=== PATIENT | female | born 1990 | race Caucasian/White ===

== ENCOUNTER 2017-03-16 12:00 | Emergency (ER) | payer OTHER ==
[2017-03-16 12:14] VITALS: BP 131/93; PULSE 79; TEMP 98.1; BMI 29.7
[2017-03-16] MEDS ORDERED: ONDANSETRON 4 MG/2 ML VIAL IVPB ONE (12:18)
[2017-03-16] MEDS ORDERED: SODIUM CHLORIDE 1,000 ML IV STA (12:18)
--- NOTE | 2017-03-16 12:18 | PDOC ---
History of Present Illness - General Chief Complaint: Vomiting/Diarrhea Stated Complaint: ABD PAIN, VOMITING, DIARRHEA Time Seen by Provider: 03/16/17 12:07 History Source: Patient Exam Limitations: No Limitations - History of Present Illness Travel History: No Initial Comments: 03/16/17 12:20 This is a 26 yo F who presents to the ER with a complaint of nausea, vomiting, diarrhea and abdominal pain Pt states that her symptoms began yesterday at approximately noon (prior to patient eating for the day) Her last meal was [place] food on wednesday, her boyfriend had the same meal and is not ill. No recent travel. No ill contacts. No recent antibiotic use. Vomiting 8 times/day (non bloody, non bilious, food particles now yellow) Diarrhea 3 times beginning today (non bloody, non mucoid) Pain is epigastric, radiates to the sides, Burning pain, 8/10, worse with laying down, slouching forward is better This happened 2 weeks ago, she took omeprazole but this did not help Has had 4 times over the course of her life, dx with H Pylori, treated with antibiotics The patient states she is not able to tolerate fluids and liquids The patient reports chills LMP 9/4 PMH: denies PSH: denies Meds: denies ALL: NKDA Social: denies drug use GENERAL/CONSTITUTIONAL: No: fever, chills, weakness, loss of appetite. HEAD, EYES, EARS, NOSE AND THROAT: No: change in vision, ear pain, discharge, sore throat, throat swelling. CARDIOVASCULAR: No: chest pain, lightheadedness, palpitations, syncope RESPIRATORY: No: cough, shortness of breath, wheezing, hemoptysis, stridor. GASTROINTESTINAL: Yes: nausea, vomiting, diarrhea, abdominal pain No:rectal bleeding, constipation. GENITOURINARY: No: dysuria, hematuria, frequency, urgency, flank pain. MUSCULOSKELETAL: No: back pain, neck pain, joint pain, muscle swelling or pain SKIN AND BREASTS: No: lesions, pallor, rash or easy bruising. NEUROLOGIC: No: headache, vertigo, paresthesias, weakness ENDOCRINE: No: unexplained weight gain or loss HEMATOLOGIC/LYMPHATIC: No: anemia, easy bleeding, swelling nodes. GENERAL: The patient is in no acute distress. HEAD: Normal with no signs of trauma. EYES: PERRLA, EOMI, sclera anicteric, conjunctiva clear. ENT: Ears normal, nares patent, oropharynx clear without exudates. Moist mucous membranes. NECK: Normal range of motion, supple without lymphadenopathy, JVD, or masses. LUNGS: Breath sounds equal, clear to auscultation bilaterally. No wheezes, and no crackles. HEART:Regular rate and rhythm, normal S1 and S2 without murmur, rub or gallop. ABDOMEN: Soft, epigastric tendernes to palpation, abdominal distention, mild ruq tenderness, Hernández's sign negative. No guarding, no rebound. EXTREMITIES: Normal range of motion, no edema. No clubbing or cyanosis. No erythema, or tenderness. NEUROLOGICAL: Cranial nerves II through XII grossly intact. Normal speech. No focal neurological deficits. MUSCULOSKELETAL: Back non-tender to palpation, no CVA tenderness SKIN: Warm, Dry, normal turgor, no rashes or lesions noted. 03/16/17 12:24 03/16/17 12:51 03/16/17 13:35 Past History - Past Medical History Allergies/Adverse Reactions: Allergies Allergy/AdvReac Type Severity Reaction Status Date / Time aloe vera Allergy Verified 03/16/17 12:02 Home Medications: Ambulatory Orders Famotidine [Pepcid] 20 mg PO DAILY #30 tablet 03/16/17 Ondansetron HCl [Zofran] 4 mg PO BID PRN #8 tablet 03/16/17 GI Disorders: Yes (H/O H. PYLORI) - Suicide/Smoking/Psychosocial Hx Smoking History: Never smoked Information on smoking cessation initiated: No Hx Alcohol Use: (occasional) *Physical Exam - Vital Signs Last Vital Signs Temp Pulse Resp BP Pulse Ox 98.1 F 79 18 131/93 99 03/16/17 12:00 03/16/17 12:00 03/16/17 12:00 03/16/17 12:00 03/16/17 12:00 ED Treatment Course - LABORATORY CBC & Chemistry Diagram: 03/16/17 12:25 03/16/17 12:25 Medical Decision Making - Medical Decision Making 03/16/17 12:52 Pt presents to the ER with abdominal pain, nausea and vomiting DD includes: Gastroenteritis, H pylori, pancreatitis, biliary colic, sbo possible (abd distention, no flatus) but less likely given no operative or cancer history Will do: Labs Hydration Zofran, hyoscyamine Xray, eval for air fluid levels vs. ileus Re assess 03/16/17 13:34 03/16/17 13:34 Laboratory Tests 03/16/17 03/16/17 03/16/17 12:25 12:25 12:25 WBC 7.3 Hgb 14.1 Hct 41.7 Plt Count 318 Neutrophils % 64.4 Lymphocytes % 28.2 BUN 9 Creatinine 0.6 Lipase 30 Serum , Qual Negative Urine Ketones Urine Bilirubin Urine RBC Urine WBC Ur Epithelial Cells 03/16/17 12:25 WBC Hgb Hct Plt Count Neutrophils % Lymphocytes % BUN Creatinine Lipase Serum , Qual Urine Ketones Trace Urine Bilirubin Negative Urine RBC 0-3 Urine WBC 0-3 Ur Epithelial Cells Few Xray abd: non specific bowel gas pattern 03/16/17 14:41 Pt given Morphine 2mg IV and Pepcid Pt states she feels better Will discharge to home Follow up with PMD and [employer] [employer] 03/16/17 14:41 *DC/Admit/Observation/Transfer Diagnosis at time of Disposition: Gastritis Qualifiers: Gastritis type: unspecified gastritis Chronicity: acute Gastritis bleeding: without bleeding Qualified Code(s): K29.00 - Acute gastritis without bleeding - Discharge Dispostion Disposition: HOME Condition at time of disposition: Stable Admit: No - Referrals Referrals: Stu Johnson MD [Staff Physician] - - Patient Instructions Printed Discharge Instructions: DI for Gastritis, [place] Diet Additional Instructions: Ms. Shepherd Thank you for coming in to the ER today Please follow up with your primary care physician and your [employer] for re assessment for H.Pylori Please eat what you are able to tolerate Please return to the ER with fevers, chills, lower abdominal pain and tenderness , any other concerns or complaints - Post Discharge Activity Work/School Note: Back to Work
[2017-03-16] MEDS ORDERED: HYOSCYAMINE SULFATE 0.125 MG *ODT PO ONE (12:28)
[2017-03-16] MEDS ORDERED: ONDANSETRON 4 MG/2 ML VIAL ONE (12:32)
[2017-03-16 12:34] LABS: URINE APPEARANCE Clear; URINE BILIRUBIN Negative (NEGATIVE); URINE GLUCOSE (UA) Negative (NEGATIVE); URINE KETONE Trace (NEGATIVE); URINE NITRITE Negative (NEGATIVE); URINE UROBILINOGEN 0.2 (0.2-1.0)
[2017-03-16 12:35] LABS: URINE BLOOD Trace-intact (NEGATIVE); URINE COLOR YELLOW; URINE PROTEIN 1+ (NEGATIVE); URINE RBC 0-3 /hpf (0-3)
[2017-03-16 12:36] LABS: URINE BACTERIA FEW /hpf (NEGATIVE); URINE WBC 0-3 (3-5)
[2017-03-16 12:41] LABS: BASOPHIL 2.1 % (0-2.0); EOSINOPHIL 0.3 % (0-4.5); MCH 28.8 pg (25.7-33.7); MCHC 33.9 g/dl (32.0-36.0); MEAN PLT VOLUME 7.4 fl (7.5-11.1); NEUTROPHILS 64.4 % (42.8-82.8); PLATELET COUNT 318 K/MM3 (134-434); RDW 12.5 % (11.6-15.6); WHITE BLOOD COUNT 7.3 K/mm3 (4.0-10.8)
[2017-03-16 12:50] LABS: ANION GAP 10 (8-16); CALCIUM 9.9 mg/dl (8.4-10.2); CO2 25 mmol/L (22-28); CREATININE 0.6 mg/dl (0.6-1.3); GLUCOSE,RANDOM 113 mg/dl (74-106)
[2017-03-16] MEDS ORDERED: HYOSCYAMINE SULFATE 0.125 MG *ODT ONE (12:57)
[2017-03-16] MEDS ORDERED: FAMOTIDINE 20 MG/50 ML IVPB 50 ML IVPB ONE ×2 (13:53→14:06)
[2017-03-16] MEDS ORDERED: morphine CARPU-JECT 4 MG/1 ML DISP.SYRIN IVPUSH ONE (13:53)
[2017-03-16] MEDS ORDERED: morphine CARPU-JECT 2 MG/1 ML DISP.SYRIN ONE (14:06)
[2017-03-16 17:40] LABS: URINE LEUK ESTERASE NEGATIVE (NEGATIVE)
== END 2017-03-16 15:05 | disposition home or self-care (01) ==
LOC: FER 12:00
PROC: 3E033GC Introduction of Other Therapeutic Substance into Peripheral Vein, Percutaneous Approach (ICD-10-PCS; principal; 2017-03-16)
PROC: 3E033NZ Introduction of Analgesics, Hypnotics, Sedatives into Peripheral Vein, Percutaneous Approach (ICD-10-PCS; 2017-03-16)
PROC: 3E0337Z Introduction of Electrolytic and Water Balance Substance into Peripheral Vein, Percutaneous Approach (ICD-10-PCS; 2017-03-16)
DX: K29.00 Acute gastritis without bleeding (principal)
CPT/HCPCS: 36415; 74020-TC; 80048; 81003; 81015; 83690; 84703; 85025; 87086; 99283-25